=== PATIENT | female | born 1960 | race Caucasian/White ===

== ENCOUNTER → 2019-04-05 | Outpatient (CLI) | payer BC ==
--- NOTE | 2019-04-05 13:53 | REP ---
Right ankle series: Four views. History: Localized swelling. Findings: There is plantar calcaneal spurring. There is diffuse moderate to marked swelling in the soft tissues about the ankle. Ankle mortise is intact. No fractures seen. No soft tissue gas is seen. Impression: Diffuse marked soft tissue swelling. Plantar heel spur. No other bony abnormality. Electronically Signed by Ravi Stearns MD 04/05/2019 01:45 P
--- NOTE | 2019-04-05 13:54 | REP ---
Chest x-ray: Two views. History: Localized swelling mass. Elevated blood pressure. Findings: An azygos lobe is noted incidentally. The lungs are well inflated and free of infiltrate. Pleural angles are sharp. Pulmonary vasculature is not increased. Heart size is borderline with cardiothoracic ratio measuring 50.8%. Pleural angles are sharp. No infiltrate is seen. There are minimal degenerative changes in the thoracic spine. Impression: Borderline heart size. Azygos lobe noted incidentally. Otherwise no acute disease. Electronically Signed by Ravi Stearns MD 04/05/2019 01:46 P
[2019-04-05 18:30] LABS: BASO % 0.2 % (0.0-1.0); EOS # 0.1 10^3/uL (0.0-0.50); EOS % 2.1 % (0.0-3.0); HEMATOCRIT 39.5 % (36.0-47.0); HEMOGLOBIN 12.3 g/dl (12.0-15.5); LYMPH # 1.7 10^3/uL (1.5-4.5); LYMPH % 32.4 % (24.0-44.0); MEAN CORPUSCULAR HEMOGLOBIN 29.9 pg (27.0-33.0); MEAN CORPUSCULAR HGB CONC 31.1 g/dl (32.0-36.5); MEAN CORPUSCULAR VOLUME 95.9 fl (80.0-96.0); MONO # 0.4 10^3/uL (0.0-0.8); MONO % 7.5 % (0.0-5.0); NEUTROPHILS % 57.2 % (36.0-66.0); PLATELET COUNT, AUTOMATED 171 10^3/uL (150-450); RED BLOOD COUNT 4.12 10^6/uL (4.00-5.40); WHITE BLOOD COUNT 5.2 10^3/uL (4.0-10.0)
[2019-04-05 18:40] LABS: ALBUMIN 3.8 GM/DL (3.2-5.2); ALT/SGPT 23 U/L (12-78); BILIRUBIN,TOTAL 0.9 MG/DL (0.2-1.0); BLOOD UREA NITROGEN 15 MG/DL (7-18); CARBON DIOXIDE LEVEL 28 MEQ/L (21-32); CHLORIDE LEVEL 108 MEQ/L (98-107); CREATININE FOR GFR 0.81 MG/DL (0.55-1.30); FREE T4 0.86 NG/DL (0.76-1.46); GLOMERULAR FILTRATION RATE > 60.0 (>51); GLUCOSE, FASTING 90 MG/DL (70-100); POTASSIUM SERUM 4.5 MEQ/L (3.5-5.1); SODIUM LEVEL 141 MEQ/L (136-145); TOTAL PROTEIN 6.9 GM/DL (6.4-8.2)
[2019-04-05 18:58] LABS: ERYTHROCYTE SEDIMENTATION RATE 20 mm/hr (0-30)
== END ==
LOC: M WUC 12:21
PROVIDERS: ATTEND Physician Assistant
DX: M77.31 Calcaneal spur, right foot (principal); R03.0 Elevated blood-pressure reading, without diagnosis of hypertension